=== PATIENT | male | born 1950 | race Caucasian/White ===

== ENCOUNTER 2017-09-21 23:16 | Emergency (ER) | payer MEDICARE ==
[~2017-09-21] VITALS: Ht 182.9 cm; Wt 82.0 kg
[2017-09-21 23:20] VITALS: BP 157/82; PULSE 82; RESP 20; TEMP 96.7; O2SAT 97
--- NOTE | 2017-09-21 23:42 | PD ---
HPI Chief Complaint: Respiratory Symptoms Time Seen by Provider: 23:30 Travel History International Travel<30 days: No Contact w/Intl Traveler<30days: No Traveled to known affect area: No History of Present Illness HPI 67-year-old white male presents to emergency department with complains of shortness of breath. He states that he was diagnosed with COPD back in 2005. He was seen this Saturday by his doctor in the office and started on an oral antibiotic and prednisone. He does not use any inhalers. He states that he had used albuterol years ago but has not used anything recently. Patient states that he feels as if there is mucus in his chest and he cannot expectorate it. Patient is complaining of large amount of coughing with a small amount of sputum. He denies any fever chills. No ear pain or sore throat. No nausea vomiting. No abdominal pain or urinary symptoms. Symptoms are moderate. Worse with activity and coughing. PFSH Past Medical History Narrative Medical COPD COPD: Yes Immunizations Current: Yes Tetanus Vaccination: Unknown Influenza Vaccination: No Past Surgical History Surgical History: No Previous Surgery Social History Alcohol Use: No Tobacco Use: No Substance Use: No Allergies-Medications (Allergen,Severity, Reaction): Coded Allergies: No Known Allergies (Unverified , 09/21/17) Reported Meds & Prescriptions Reported Meds & Active Scripts Active Spiriva Handihaler (Tiotropium Inh) 18 Mcg Cap 18 Mcg INH DAILY 1 capsule = 18 mcg Proventil Hfa 6.7 GM Inh (Albuterol Sulfate) 90 Mcg/Act Aer 2 Puff INH Q6H PRN Reported [place] Extract (Saw [place]-Zinc) 160-15 mg Cap 1 Cap PO DAILY Multiple Vitamin 1 Tab 1 Tab PO DAILY Cipro (Ciprofloxacin HCl) 250 Mg Tab 250 Mg PO BID Simvastatin 5 Mg Tab 5 Mg PO DAILY Prednisone 5 Mg Tab 5 Mg PO BID Review of Systems General / Constitutional: No: Fever Eyes: No: Visual changes HENT: No: Headaches Cardiovascular: No: Chest Pain or Discomfort Respiratory: Positive: Cough, Shortness of Breath, Wheezing Gastrointestinal: No: Abdominal Pain Genitourinary: No: Dysuria Musculoskeletal: No: Pain Skin: No Rash Neurologic: No: Weakness Psychiatric: No: Depression Endocrine: No: Polydipsia Hematologic/Lymphatic: No: Easy Bruising Physical Exam Narrative GENERAL: Well-developed, well-nourished in no acute distress. Nontoxic appearing. HEAD: Normocephalic, atraumatic. EYES: Pupils equal round and reactive. Extraocular motions intact. No scleral icterus. No injection or drainage. ENT: TMs clear without erythema. The external auditory canals clear. Nose: clear . Posterior pharynx is pink and moist. No tonsillar edema or exudate. Uvula midline. Airway patent. NECK: Trachea midline.Supple, nontender, moves head freely. No central bony tenderness or spasm. CARDIOVASCULAR: Regular rate and rhythm without murmurs, gallops, or rubs. RESPIRATORY: Clear to auscultation. Breath sounds equal bilaterally. No wheezes , rales, or rhonchi. GASTROINTESTINAL: Abdomen soft, non-tender, nondistended. No hepato-splenomegaly , or palpable masses. No guarding. EXTREMITIES: No clubbing, cyanosis, or edema. No joint tenderness, effusion, or edema noted. BACK: Nontender without deformity or crepitance. No flank tenderness. Data Data Last Documented VS Vital Signs Date Time Temp Pulse Resp B/P (MAP) Pulse Ox O2 Delivery O2 Flow Rate FiO2 09/22/17 00:24 20 09/21/17 23:20 96.7 82 97 Room Air Orders Orders Electrocardiogram (09/21/17 23:37) Chest, Single Ap (09/21/17 23:37) Ecg Monitoring (09/21/17 23:37) Iv Access Insert/Monitor (09/21/17 23:37) Oximetry (09/21/17 23:37) Methylprednisolone So Succ Inj (Solumedr (09/21/17 23:45) Albuterol-Ipratropium Neb (Duoneb Neb) (09/21/17 23:45) Sodium Chloride 0.9% Flush (Ns Flush) (09/21/17 23:45) Influenzae A/B Antigen (09/21/17 23:37) Ed Discharge Order (09/22/17 00:43) [facility] Medical Decision Making Medical Screen Exam Complete: Yes Emergency Medical Condition: Yes Medical Record Reviewed: Yes Interpretation(s) Influenza: Negative Chest x-ray: Negative for infiltrate. COPD changes. Differential Diagnosis MDM: High Differential diagnoses: Pneumonia, bronchitis, URI, asthma, COPD exacerbation Narrative Course IV access is obtained. Patient given Solu-Medrol 125 mg IV, 2 albuterol and Atrovent treatments. Chest x-ray. EKG. The patient is feeling improved. He is medically stable for discharge. This is COPD exacerbation, bronchitis Diagnosis Primary Impression: COPD exacerbation Additional Impression: acute bronchitis Patient Instructions: General Instructions Additional Instructions: Rest. Increase fluids. Tylenol and Advil. Robitussin-DM. Continue your antibiotics and steroids. Albuterol and Spiriva Followup with your Dr. in one week. Return to the ER for any problems. Med/Other Pt SpecificInfo: Prescription(s) given Scripts Tiotropium Inh (Spiriva Handihaler) 18 Mcg Cap 18 MCG INH DAILY for COPD, #30 CAP 0 Refills 1 capsule = 18 mcg Prov: Bob Arellano MD 09/22/17 Albuterol 6.7 GM Inh (Proventil Hfa 6.7 GM Inh) 90 Mcg/Act Aer 2 PUFF INH Q6H Y for SHORTNESS OF BREATH, #1 INHALER 0 Refills Prov: Bob Arellano MD 09/22/17 Disposition: 01 DISCHARGE HOME Condition: Stable Johny Perez Sep 21, 2017 23:41
[2017-09-21] MEDS ORDERED: methylPREDNISolone SOD SUCC 125 MG/2 ML VIAL IV PUSH ONE (23:45)
[2017-09-21] MEDS ORDERED: SODIUM CHLORIDE 0.9% FLUSH 10 ML FLUSH IVF PRN (23:45)
[2017-09-22] MEDS: RESP: ALBUTEROL 2.5 MG/IPRATROPIUM 0.5 MG NEB (SCH) INH (00:01)
--- NOTE | 2017-09-22 00:03 | RADRPT ---
EXAM DATE/TIME: 09/21/2017 23:48 [facility] COMPARISON: No previous studies available for comparison. INDICATIONS : Shortness of breath and cough x 1 week. MEDICAL HISTORY : None. SURGICAL HISTORY : None. ENCOUNTER: Initial ACUITY: 1 week PAIN SCORE: 7/10 LOCATION: Bilateral chest FINDINGS: A single view of the chest demonstrates the lungs to be symmetrically aerated without evidence of mas s, infiltrate or effusion. The cardiomediastinal contours are unremarkable. Osseous structures are intact. CONCLUSION: 1. No acute cardiopulmonary disease. Paolo Chun MD on September 22, 2017 at 0:01 Board Certified Radiologist. This report was verified electronically.
[2017-09-22 00:24] VITALS: RESP 20
[2017-09-22] MEDS ORDERED: MULTTAB67 PO (00:31)
[2017-09-22] MEDS ORDERED: CIPR250T52 PO (00:31)
[2017-09-22] MEDS ORDERED: PRED5TAB PO (00:31)
[2017-09-22] MEDS ORDERED: SAWCAP2 PO (00:31)
[2017-09-22] MEDS ORDERED: SIMV5TAB3 PO (00:31)
[2017-09-22] MEDS ORDERED: ALBU6.7H INH (00:43)
[2017-09-22] MEDS ORDERED: SPIRCAP INH (00:43)
--- NOTE | 2017-09-22 13:42 | EKG ---
Date Performed: 09/22/2017 Time Performed: 00:23:45 PTAGE: 67 years EKG: Sinus rhythm WITH SHORT CA INTERVAL RIGHT BUNDLE BRANCH BLOCK ABNORMAL ECG NO PREVIOUS TRACING DOCTOR: Chirag Brand Interpretating Date/Time 09/22/2017 13:40:56
== END 2017-09-22 01:07 | disposition home or self-care (01) ==
LOC: NEPD 23:16
DX: J44.1 Chronic obstructive pulmonary disease with (acute) exacerbation (principal); J20.9 Acute bronchitis, unspecified; J44.0 Chronic obstructive pulmonary disease with (acute) lower respiratory infection; R94.31 Abnormal electrocardiogram [ECG] [EKG]
CPT/HCPCS: 71045; 87804; 93005; 94640; 94664; 96374; 99284; J2930